=== PATIENT | male | born 1930 | race Caucasian/White ===

== ENCOUNTER 2017-10-05 15:59 | Inpatient (IN) | payer MEDICARE, BC ==
[~2017-10-05] VITALS: Ht 182.9 cm; Wt 91.0 kg
[~2017-10-05 15:59] MED LIST: ALLO100T PO; ATOR10TA87 PO; COR3.125T PO; ENAL10TA78 PO; ENOX100S3 SQ; FURO-150 PO; POTA8CAP9 PO
[2017-10-05] MEDS ORDERED: normal saline 1000ML IV soln IVB ONE ×3 (16:30→19:20)
[2017-10-05 17:03] LABS: BASOPHILS % (AUTO) 0.2 % (0-1); EOSINOPHILS # (AUTO) 0.2 X10'3 (0-0.9); EOSINOPHILS % (AUTO) 2.1 % (0-6); LYMPHOCYTES # (AUTO) 0.9 X10'3 (1.1-4.8); LYMPHOCYTES % (AUTO) 10.8 % (21-51); MEAN CORPUSCULAR HEMOGLOBIN 24.4 PG (27.0-31.0); MEAN CORPUSCULAR HGB CONC 30.9 % (33.0-36.5); MEAN CORPUSCULAR VOLUME 78.7 FL (78-98); MEAN PLATELET VOLUME 7.8 FL (7.4-10.4); MONOCYTES # (AUTO) 0.7 X10'3 (0-0.9); MONOCYTES % (AUTO) 8.2 % (2-12); NEUTROPHILS # (AUTO) 6.5 X10'3 (1.8-7.7); NEUTROPHILS % (AUTO) 78.7 % (42-75); PLATELET COUNT 230 X10'3 (140-440); RED BLOOD COUNT 2.62 X10'6 (4.70-6.10); RED CELL DISTRIBUTION WIDTH 21.3 % (11.5-14.5); WHITE BLOOD COUNT 8.3 X10'3 (4.5-11.0)
[2017-10-05 17:05] LABS: HEMATOCRIT 20.6 % (42.0-52.0); HEMOGLOBIN 6.4 g/dl (14.0-17.9)
[2017-10-05 17:18] LABS: ALANINE AMINOTRANSFERASE 77 U/L (12-78); ALBUMIN 2.8 G/DL (3.4-5.0); ALBUMIN/GLOBULIN RATIO 0.7 (1.1-1.5); ALKALINE PHOSPHATASE 254 IU/L (46-116); ANION GAP 12 (8-16); ASPARTATE AMINO TRANSFERASE 89 U/L (10-37); BILIRUBIN,TOTAL 2.8 MG/DL (0.1-1.0); BLOOD UREA NITROGEN 33 MG/DL (7-18); CALCIUM 8.7 MG/DL (8.5-10.1); CHLORIDE 100 MMOL/L (99-107); CREATININE 1.83 MG/DL (0.60-1.10); GLUCOSE 106 MG/DL (70-104); INR 2.5 INR; PARTIAL THROMBOPLASTIN TIME 48 SECONDS (22-32); POTASSIUM 4.3 MMOL/L (3.5-5.1); PROTHROMBIN TIME 25.5 SECONDS (9.0-12.0); SODIUM 136 MMOL/L (135-145); TOTAL CARBON DIOXIDE 24.1 MMOL/L (24-32); TOTAL PROTEIN 6.8 G/DL (6.4-8.2); eGFR 35 ML/MIN
[2017-10-05] MEDS ORDERED: vancomycin/NS 1 GM ADD-VANTAGE 250 ML IV ONE (17:20)
[2017-10-05] MEDS ORDERED: cefepime 1GM/NS ADD-VANTAGE 100 ML IV ONE (17:20)
[2017-10-05] MEDS ORDERED: azithromycin/NS 500mg/250ml 250 ML IV ONE (17:20)
[2017-10-05 17:27] LABS: MAGNESIUM 2.4 MG/DL (1.5-2.4)
[2017-10-05 17:33] LABS: ANISOCYTOSIS 3+; HYPOCHROMASIA 2+; PLATELET ESTIMATE NORMAL
[2017-10-05 17:34] LABS: ACANTHOCYTES FEW; BURR CELLS FEW; SCHISTOCYTES FEW
[2017-10-05 17:35] LABS: ROULEAUX 1+
[2017-10-05 17:36] LABS: ELLIPTOCYTES FEW; POLYCHROMASIA FEW
[2017-10-05 19:21] LABS: ABG BASE EXCESS -8.2 mmol/L (-2.0-3.0); ABG HCO3 15.9 mmol/L (22.0-26.0); ABG OXYGEN SATURATION 79.8 % (95-98); ABG PCO2 (T) 24.7 mmHg (35.0-48.0); ABG PH (T) 7.419 (7.350-7.450); ABG PO2 (T) 43.6 mmHg (83-108); FCOHb 1.5 % (0.5-1.5); FMetHb 0.1 % (0.3-1.12); FO2Hb 78.5 % (94-100); PATIENT TEMPERATURE 35.5; RESPIRATORY RATE (OBSERVED) 20 b/min; TOTAL HEMOGLOBIN 6.5 G/dl (14.0-18.0)
[2017-10-05] MEDS ORDERED: PHYTONADIONE IV ONE (19:25)
[2017-10-05] MEDS ORDERED: NORMAL SALINE IV ONE (19:25)
[2017-10-05] MEDS ORDERED: morphine 4 MG/ML inj SYRINge IV ONE ×3 (19:50→22:05)
[2017-10-05] MEDS ORDERED: ondansetron/PF 4mg/2ml inj IV PRN (22:40)
[2017-10-05] MEDS: normal saline 1000ml 1,000 ML IV SCH (23:08)
[2017-10-06] VITALS (14 sets, daily range): BP systolic 76–113; BP diastolic 47–74
[2017-10-06 00:24] LABS: OCCULT BLOOD STOOL POSITIVE (Neg)
[2017-10-06] MEDS: normal saline 1000ml 1,000 ML IV SCH (08:40)
[2017-10-06] MEDS ORDERED: LORazepam 2 mg/ml vial IV PRN (15:40)
[2017-10-06] MEDS ORDERED: morphine 10mg/ml inj. IV PRN (15:40)
[2017-10-06] MEDS ORDERED: morphine 10mg/0.5ml (conc. morphine) oral syringe PO PRN (15:40)
[2017-10-06] MEDS: morphine 4 MG/ML inj SYRINge IV PRN (16:09)
[2017-10-07] MEDS: morphine 4 MG/ML inj SYRINge IV PRN ×5 (08:39→23:11)
[2017-10-07 22:00] VITALS: BP 161/59
== END 2017-10-08 05:45 | disposition expired | DRG 871 ==
LOC: ER 15:59 → ED HOLD 22:40 → PCU 3S 10-06 00:01 → ORTHO 4S 10-07 17:27
PROVIDERS: ADMIT Internal Medicine; ATTEND Family Medicine
PROC: 5A09357 Assistance with Respiratory Ventilation, Less than 24 Consecutive Hours, Continuous Positive Airway Pressure (ICD-10-PCS; principal; 2017-10-05)
DX: A41.9 Sepsis, unspecified organism (principal); R65.21 Severe sepsis with septic shock; J96.01 Acute respiratory failure with hypoxia; N17.9 Acute kidney failure, unspecified; J18.9 Pneumonia, unspecified organism; D62 Acute posthemorrhagic anemia; K92.2 Gastrointestinal hemorrhage, unspecified; N18.9 Chronic kidney disease, unspecified; F03.90 Unspecified dementia, unspecified severity, without behavioral disturbance, psychotic disturbance, mood disturbance, and anxiety; Z51.5 Encounter for palliative care; Z66 Do not resuscitate; Z79.01 Long term (current) use of anticoagulants; Z86.73 Personal history of transient ischemic attack (TIA), and cerebral infarction without residual deficits; Z79.899 Other long term (current) drug therapy; Z79.82 Long term (current) use of aspirin
CPT/HCPCS: 36415; 36600; 70450; 71045; 74176; 80053; 82140; 82272; 82803; 83605; 83735; 83880; 84145; 84484; 85018; 85025; 85610; 85730; 86885; 86900; 86901; 87040; 87070; 93005; 94660; 94760; A6212; J0456; J0692; J2270; J3370; J3430; J7030